=== PATIENT | female | born 1950 ===

== ENCOUNTER 2018-08-05 15:20 | Inpatient (IN) | payer MEDICARE ==
[~2018-08-05] VITALS: Ht 157.5 cm; Wt 56.9 kg
--- NOTE | 2018-08-05 16:05 | NUR ---
PT AMBULATED TO ROOM WITH STEADY GAIT. PT STATED THAT SHE HAS BEEN DIZZY FOR ONE MONTH. PT REPORTS CAMACHO OFF AND ON. STATED THAT SHE ALWAYS HAS CAMACHO. PT IS ALERT, ORIENTED, WITH NAD. PT IS CONNECTED TO THE MONITOR. CALL LIGHT WITHIN REACH.
[2018-08-05 16:20] LABS: ALANINE AMINOTRANSFERASE 115 U/L (12-78); ALBUMIN 3.4 g/dL (3.4-5.0); ANION GAP 10 mmol/L (5-15); CALCIUM 10.3 mg/dL (8.5-10.1); CHLORIDE 104 mmol/L (98-107); CREATININE 0.77 mg/dL (0.55-1.02); MEAN CORPUSCULAR HEMOGLOBIN 28.4 pg (27.0-34.8); MEAN CORPUSCULAR VOLUME 88.7 fL (80-100); MEAN PLATELET VOLUME 8.1 fL (7.4-10.4); PLATELET COUNT 382 x10^3/uL (130-400); RED BLOOD COUNT 4.02 x10^6/uL (3.82-5.3); RED CELL DISTRIBUTION WIDTH 14.1 % (9.6-15.2)
[2018-08-05 16:23] LABS: ALKALINE PHOSPHATASE 129 U/L (45-117); BILIRUBIN,TOTAL 1.1 mg/dL (0.2-1.0); TOTAL PROTEIN 7.7 g/dL (6.4-8.2)
[2018-08-05 16:33] LABS: MD YES
[2018-08-05 16:35] LABS: <RBC MORPHOLOGY> NORMAL; EOS#(MANUAL) 0.07 x10^3/uL (0.0-0.4); EOS% (MANUAL) 1 % (1-7); LYMPH#(MANUAL) 2.85 x10^3/uL (1-3.4); LYMPHS% (MANUAL) 39 % (22-44); MONOS#(MANUAL) 0.51 x10^3/uL (0.3-2.7); MONOS% (MANUAL) 7 % (2-9); SEG#(MANUAL) 3.87 x10^3/uL (1.8-6.8); SEGS% (MANUAL) 53 % (42-75)
[2018-08-05 16:36] LABS: <PLATELET ESTIMATE> ADEQUATE; <PLT MORPHOLOGY> NORMAL PLT MORPH
--- NOTE | 2018-08-05 16:37 | NUR ---
PT IS RESTING IN BED, TALKING WITH VISITOR, RESPIRATIONS EQUAL AND NON LABORED. NAD. PT IS CONNECTED TO THE MONITOR. CALL LIGHT WITHIN REACH.
[2018-08-05] MEDS ORDERED: MECLIZINE CHEWABLE 25 MG TAB PO ONE (17:00)
[2018-08-05] MEDS ORDERED: SODIUM CHLORIDE FLUSH 10ML SYR IVF ONE (17:00)
[2018-08-05] MEDS ORDERED: SODIUM CHLORIDE 0.9% 1,000ML IVBOLUS ONE (17:00)
[2018-08-05] MEDS ORDERED: MECLIZINE CHEWABLE 25 MG TAB ONE (17:36)
--- NOTE | 2018-08-05 17:38 | NUR ---
pt medicated per order.
--- NOTE | 2018-08-05 18:22 | NUR ---
PT IS RESTING IN BED, TALKING WITH VISITOR, RESPIRATIONS EQUAL AND NON LABORED. NAD. PT IS CONNECTED TO THE MONITOR. CALL LIGHT WITHIN REACH.
--- NOTE | 2018-08-05 18:55 | NUR ---
REPORT GIVEN TO KIMMY PHILIP.
--- NOTE | 2018-08-05 18:56 | NUR ---
BS REPORT OF PT FROM TAMERA CHAO, AND ASSUMING CARE OF PT.
[2018-08-05 19:09] LABS: THYROID STIMULATING HORMONE < 0.005 mIU/L (0.358-3.740)
[2018-08-05] MEDS ORDERED: PROPRANOLOL 1 MG/ML, 1ML IVPush ONE (19:30)
--- NOTE | 2018-08-05 20:42 | NUR ---
TASK RN: HOSPITALIST AWARE OF PROPANOLOL ORDERED AND CURRENT HR OF 115. PER HOSPITALIST, HOLD ERP PROPANOLOL ORDER AND REPLACE WITH INPATIENT ORDER. PROPANOLOL HELD AT THIS TIME. RN ON FLOOR MADE AWARE.
[2018-08-05 20:58] VITALS: BP_SYST 125; BP_SYST 136; BP_SYST 137; BP_DIAS 67; BP_DIAS 76; BP_DIAS 77
[2018-08-05] MEDS ORDERED: ACETAMINOPHEN 325 MG TABLET PO PRN (21:00)
[2018-08-05] MEDS ORDERED: BISACODYL 10 MG SUPP PR PRN (21:00)
[2018-08-05] MEDS ORDERED: POLYETHYLENE GLYCOL 17 GM PACKET PO PRN (21:00)
[2018-08-05] MEDS ORDERED: BUTALB/APAP/CAFFEINE 50MG/325MG/40MG PO PRN (21:00)
[2018-08-05] MEDS ORDERED: ONDANSETRON 2MG/ML, 2ML IVPush PRN (21:00)
[2018-08-05] MEDS ORDERED: POTASSIUM CHLORIDE 20 MEQ TAB.ER.PRT PO ONE (21:00)
[2018-08-05] MEDS ORDERED: PROPRANOLOL 10 MG TABLET ONE (21:53)
[2018-08-05] MEDS: PROPRANOLOL 20 MG TABLET PO SCH (22:04)
[2018-08-05] MEDS: HYDROCORTISONE 100 MG INJ. IVPush SCH (22:04)
[2018-08-05] MEDS: SODIUM CHLORIDE FLUSH 10ML SYR IVF SCH (22:04)
[2018-08-06 02:21] VITALS: BP 132/76
[2018-08-06 05:23] LABS: BASOPHILS # (AUTO) 0.01 x10^3/uL (0-0.1); BASOPHILS % (AUTO) 0 % (0-1); EOSINOPHILS % (AUTO) 0 % (1-7); LYMPHOCYTES # (AUTO) 1.12 x10^3/uL (1-3.4); LYMPHOCYTES % (AUTO) 24 % (22-44); MD NO; MEAN CORPUSCULAR HEMOGLOBIN 29.3 pg (27.0-34.8); MEAN CORPUSCULAR HGB CONC 33.5 g/dL (32.4-35.8); MEAN CORPUSCULAR VOLUME 87.4 fL (80-100); MEAN PLATELET VOLUME 8.3 fL (7.4-10.4); MONOCYTES # (AUTO) 0.12 x10^3/uL (0.2-0.8); MONOCYTES % (AUTO) 3 % (2-9); NEUTROPHILS # (AUTO) 3.32 x10^3/uL (1.8-6.8); NEUTROPHILS % (AUTO) 73 % (42-75); PLATELET COUNT 338 x10^3/uL (130-400); RED BLOOD COUNT 3.37 x10^6/uL (3.82-5.3); RED CELL DISTRIBUTION WIDTH 14.1 % (9.6-15.2)
[2018-08-06 05:34] LABS: ALANINE AMINOTRANSFERASE 97 U/L (12-78); ALBUMIN 2.8 g/dL (3.4-5.0); ANION GAP 6 mmol/L (5-15); CALCIUM 9.7 mg/dL (8.5-10.1); CHLORIDE 111 mmol/L (98-107); CREATININE 0.59 mg/dL (0.55-1.02)
[2018-08-06 05:36] LABS: ALKALINE PHOSPHATASE 111 U/L (45-117); BILIRUBIN,TOTAL 0.6 mg/dL (0.2-1.0); TOTAL PROTEIN 6.6 g/dL (6.4-8.2)
[2018-08-06 05:45] LABS: FREE T4 (FREE THYROXINE) 4.51 ng/dL (0.76-1.46)
[2018-08-06 05:49] LABS: THYROID STIMULATING HORMONE < 0.005 mIU/L (0.358-3.740)
[2018-08-06] MEDS: HYDROCORTISONE 100 MG INJ. IVPush SCH ×3 (05:51→20:09)
[2018-08-06] MEDS: PROPRANOLOL 20 MG TABLET PO SCH ×3 (05:52→20:09)
[2018-08-06 06:31] LABS: MICROSCOPIC AUTO
[2018-08-06 06:39] LABS: CULTURE INDICATED? YES
[2018-08-06 06:45] LABS: AMPHETAMINE SCREEN, URINE Negative (Negative); BARBITURATE SCREEN, URINE Negative (Negative); BENZODIAZEPINE SCREEN, URINE Negative (Negative); CANNABINOID SCREEN, URINE Negative (Negative); COCAINE SCREEN, URINE Negative (Negative); METHADONE SCREEN, URINE Negative (Negative); OPIATE SCREEN, URINE Negative (Negative)
[2018-08-06 07:32] VITALS: BP 107/67
[2018-08-06] MEDS ORDERED: METHIMAZOLE 5 MG TAB PO SCH (09:00)
[2018-08-06] MEDS: SENNA/DOCUSATE TABLET PO SCH (09:00)
[2018-08-06] MEDS: SODIUM CHLORIDE FLUSH 10ML SYR IVF SCH ×2 (09:04→20:10)
[2018-08-06 12:52] VITALS: BP 112/60
[2018-08-06] MEDS: FERROUS GLUCONATE 324 MG TABLET PO SCH (17:30)
[2018-08-06 20:03] VITALS: BP 101/61
[2018-08-07 01:11] VITALS: BP 129/67
[2018-08-07 04:09] LABS: ALANINE AMINOTRANSFERASE 92 U/L (12-78); ALBUMIN 2.7 g/dL (3.4-5.0); ANION GAP 7 mmol/L (5-15); CALCIUM 8.9 mg/dL (8.5-10.1); CHLORIDE 112 mmol/L (98-107)
[2018-08-07 04:20] LABS: ALKALINE PHOSPHATASE 96 U/L (45-117); BASOPHILS # (AUTO) 0.01 x10^3/uL (0-0.1); BASOPHILS % (AUTO) 0 % (0-1); BILIRUBIN,TOTAL 0.2 mg/dL (0.2-1.0); CREATININE 0.57 mg/dL (0.55-1.02); EOSINOPHILS % (AUTO) 0 % (1-7); FREE T4 (FREE THYROXINE) 4.24 ng/dL (0.76-1.46); LYMPHOCYTES # (AUTO) 2.07 x10^3/uL (1-3.4); LYMPHOCYTES % (AUTO) 24 % (22-44); MD NO; MEAN CORPUSCULAR HEMOGLOBIN 29.1 pg (27.0-34.8); MEAN CORPUSCULAR VOLUME 88.2 fL (80-100); MEAN PLATELET VOLUME 8.9 fL (7.4-10.4); MONOCYTES # (AUTO) 0.38 x10^3/uL (0.2-0.8); MONOCYTES % (AUTO) 4 % (2-9); NEUTROPHILS # (AUTO) 6.15 x10^3/uL (1.8-6.8); NEUTROPHILS % (AUTO) 71 % (42-75); PLATELET COUNT 313 x10^3/uL (130-400); RED BLOOD COUNT 3.15 x10^6/uL (3.82-5.3); RED CELL DISTRIBUTION WIDTH 14.1 % (9.6-15.2); TOTAL PROTEIN 6.2 g/dL (6.4-8.2)
[2018-08-07 04:25] LABS: THYROID STIMULATING HORMONE < 0.005 mIU/L (0.358-3.740)
[2018-08-07] MEDS: HYDROCORTISONE 100 MG INJ. IVPush SCH (05:04)
[2018-08-07] MEDS: PROPRANOLOL 20 MG TABLET PO SCH ×2 (05:05→14:04)
[2018-08-07 06:52] VITALS: BP 124/72
[2018-08-07] MEDS: FERROUS GLUCONATE 324 MG TABLET PO SCH (08:17)
[2018-08-07] MEDS: SENNA/DOCUSATE TABLET PO SCH (08:25)
[2018-08-07] MEDS: SODIUM CHLORIDE FLUSH 10ML SYR IVF SCH (08:26)
[2018-08-07 13:18] VITALS: BP 108/66
[2018-08-07 15:15] VITALS: BP_SYST 119; BP_SYST 122; BP_SYST 123; BP_DIAS 74
[2018-08-07] MEDS ORDERED: METH10TA6 PO (15:42)
[2018-08-07] MEDS ORDERED: PROP20TA PO (15:42)
== END 2018-08-07 17:00 | disposition home or self-care (01) | DRG 644 ==
LOC: ED 19:37 → EDIP 19:49 → 4WST 20:47
PROVIDERS: ADMIT Hospitalist; ATTEND Hospitalist
DX: E05.90 Thyrotoxicosis, unspecified without thyrotoxic crisis or storm (principal); E44.1 Mild protein-calorie malnutrition; D64.9 Anemia, unspecified; E83.52 Hypercalcemia; E87.6 Hypokalemia; H93.19 Tinnitus, unspecified ear; Z66 Do not resuscitate; Z80.3 Family history of malignant neoplasm of breast; Z90.710 Acquired absence of both cervix and uterus; R42 Dizziness and giddiness; R00.0 Tachycardia, unspecified; R74.0 Nonspecific elevation of levels of transaminase and lactic acid dehydrogenase [LDH]
CPT/HCPCS: 36415; 70450; 71045; 76536; 76700; 80053; 80074; 80307; 81001; 82306; 82728; 83520; 83540; 83550; 83970; 84439; 84443; 84466; 84480; 84481; 85025; 86376; 87086; 93005; 96360; 99291; G0378; J1720; J7030

== ENCOUNTER 2019-02-14 21:19 | Emergency (ER) | payer MEDICARE ==
[~2019-02-14] VITALS: Ht 154.9 cm; Wt 66.5 kg
[2019-02-15 00:38] VITALS: BP 145/76
== END 2019-02-15 00:40 | disposition home or self-care (01) ==
LOC: ED 23:59
DX: R42 Dizziness and giddiness (principal); E03.9 Hypothyroidism, unspecified
CPT/HCPCS: 36415; 80048; 82040; 84439; 84443; 85025; 93005; 99284

== ENCOUNTER 2019-06-11 08:37 | Emergency (ER) | payer MEDICARE ==
[~2019-06-11] VITALS: Ht 154.9 cm; Wt 55.5 kg
[~2019-06-11 08:37] MED LIST: METH10TA6 PO; PROP20TA PO
[2019-06-11 08:38] VITALS: BP 164/62
== END 2019-06-11 09:19 | disposition home or self-care (01) ==
LOC: ED 09:13
DX: R79.9 Abnormal finding of blood chemistry, unspecified (principal); E03.9 Hypothyroidism, unspecified
CPT/HCPCS: 99281